=== PATIENT | male | born 1985 | race Caucasian/White ===

== ENCOUNTER 2017-09-26 21:07 | Emergency (ER) | payer OTHER ==
[~2017-09-26] VITALS: Ht 182.9 cm; Wt 77.0 kg
[2017-09-27 00:48] VITALS: BP 129/74
== END 2017-09-27 00:50 | disposition home or self-care (01) ==
LOC: ED 23:59
DX: F10.120 Alcohol abuse with intoxication, uncomplicated (principal)
CPT/HCPCS: 99283